=== PATIENT | female | born 1990 | race African-American/Black ===

== ENCOUNTER 2017-11-15 12:53 | Emergency (ER) | payer SELFPAY ==
[~2017-11-15] VITALS: Ht 157.5 cm; Wt 117.9 kg
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
[2017-11-15] MEDS ORDERED: KEFLEX500 M1 PO (18:19)
[2017-11-15 18:33] VITALS: BP 106/58
== END 2017-11-15 18:43 ==
LOC: ERH 12:53
DX: S31.131A Puncture wound of abdominal wall without foreign body, left upper quadrant without penetration into peritoneal cavity, initial encounter (principal); X99.1XXA Assault by knife, initial encounter; Y93.9 Activity, unspecified; Y92.9 Unspecified place or not applicable
CPT/HCPCS: 74176; 81025; 87389; 90471; 90714; J2001